=== PATIENT | female | born 2005 | race Two or more races ===

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

== ENCOUNTER 2024-12-30 13:38 | Emergency (ER) | payer MEDICAID, OTHER ==
[~2024-12-30] VITALS: Ht 165.1 cm; Wt 68.1 kg
[~2024-12-30 13:38] MED LIST: CEPH500C PO
[2024-12-30 13:42] VITALS: BP 117/78; PULSE 101; RESP 16; TEMP 98.8; O2SAT 100
--- NOTE | 2024-12-30 13:49 | ED.PDOC ---
History of Present Illness HPI Comments 19 y/o F is BIBA from private residence for c/c of nonradiating, lower abdominal pain, with associated shortness of breath. Patient reports on being 24x weeks with her second ([id number]), currently, and sudden, unprovoked, and atraumatic onset of 7/10 pain with difficulty breathing, this morning. Denies any vaginal bleeding, nausea, vomiting, or further acute symptoms. She endorses on no recent ailments, sick contacts, spoiled food consumption, previous complications, or further pertinent events/history, with exception of mild exertional activities from lifting her other child at home. 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 Vitals within normal limits, with e xception of tachycardic rate of 105 and a blood glucose of 88. Time Seen by MD: 13:30 Primary Care Provider: UNKNOWN Reviewed Notes: Nurses Notes, Retail Sales Merchandiser Development Notes, Medications, Allergies Allergies: Coded Allergies: Peanut-containing Drug Products (Verified Allergy, Unknown, 08/06/22) Home Meds Active Scripts Cephalexin Monohydrate (Cephalexin) 500 Mg Cap, 1 CAP PO BID for 7 Days, #14 CAP 0 Refills Prov:RITCHIE SERRATO 08/06/22 Information Source: Patient, Emergency Med Personnel Mode of Arrival: EMS Severity: Moderate Timing: Hours Duration: Since onset Prehospital treatment: 12 Lead EKG, Accucheck, Fraud Examiner Past Medical History PAST MEDICAL HISTORY: Asthma Surgical History: Denies all surgeries 2 Para 1 AB 0 Family History Family History: Unknown Social History Smoker: Non-Smoker Alcohol: Denies ETOH Use Drugs: Denies Drug Use Lives In: Home Constitutional: denies: chills, diaphoresis, fatigue, fever, malaise, sweats, weakness, others EENTM: denies: blurred vision, double vision, ear bleeding, ear discharge, ear drainage, ear pain, ear ringing, eye pain, eye redness, hearing loss, mouth pain, mouth swelling, nasal discharge, nose bleeding, nose congestion, nose pain, photophobia, tearing, throat pain, throat swelling, voice changes, others Respiratory: denies: cough, hemoptysis, orthopnea, SOB at rest, shortness of breath, SOB with excertion, stridor, wheezing, others Cardiovascular: denies: chest pain, dizzy spells, diaphoresis, Dyspnea on exertion, edema, irregular heart beat, left arm pain, lightheadedness, palpitations, PND, syncope, others Gastrointestinal: reports: abdominal pain; denies: abdomen distended, blood streaked bowels, constipated, diarrhea, dysphagia, difficulty swallowing, hematemesis, melena, nausea, poor appetite, poor fluid intake, rectal bleeding, rectal pain, vomiting, others Genitourinary: denies: abnormal vagina bleeding, burning, dyspareunia, dysuria, flank pain, frequency, hematuria, incontinence, pain, , vagina discharge, urgency, others Neurological: denies: dizziness, fainting, headache, left sided numbness, left sided weakness, numbness, paresthesia, pre-existing deficit, right sided numbness, right sided weakness, seizure, speech problems, tingling, tremors, wea kness, others Musculoskeletal: denies: back pain, gout, joint pain, joint swelling, muscle pain, muscle stiffness, neck pain, others Integumetry: denies: bruises, change in color, change in hair/nails, dryness, l aceration, lesions, lumps, rash, wounds, others Allergic/Immunocompromised: denies: Difficulty Healing, Frequent Infections, Hives, Itching, others Hematologic/Lymphatic: denies: anemia, blood clots, easy bleeding, easy bruising, swollen glands, others Endocrine: denies: excessive hunger, excessive sweating, excessive thirst, excessive urination, flushing, intolerance to cold, intolerance to heat, unexplained weight gain, unexplained weight loss, others Psychiatric: denies: anxiety, bipolar disorder, depression, hopeless, panic disorder, schizophrenia, sleepless, suicidal, others All Other Systems: Reviewed and Negative Physical Exam General Appearance: No Apparent Distress HEENT: Normal ENT Inspection, Pharynx Normal, TMs Normal Neck: Full Range of Motion, Non-Tender, Normal, Normal Inspection Respiratory: Chest Non-Tender, Lungs Clear, No Accessory Muscle Use, No Respiratory Distress, Normal Breath Sounds Cardiovascular: No Edema, No JVD, No Murmur, No Gallop, Normal Peripheral Pulses, Regular Rate/Rhythm Breast Exam: Deferred Gastrointestinal: Non Tender, No Pulsatile Mass, Normal Bowel Sounds, Soft, Other (Gravid uterus) Genitalia: Deferred Pelvic: Deferred Rectal: Deferred Extremities: No calf tenderness, Normal capillary refill, Normal inspection, Normal range of motion, Non-tender, No pedal edema Musculoskeletal : Apperance: Normal Neurologic: Alert, office spec II-XII nml as Tested, No Motor Deficits, Normal Affect, Normal Mood, No Sensory Deficits Cerebellar Function: Normal Reflexes: Normal Skin: Dry, Normal Color, Warm Lymphatic: No Adenopathy Was a procedure done? Was a procedure done?: No Differential Dx Considerations may include: at-risk , gastritis, gastroenteritis, PID, abruptio placentae, placenta previa, among others X-Ray, Labs, Meds, VS The patient is cleared from the emergency department's and going to labor and delivery Time of 1ST Reevaluation: 14:00 Reevaluation 1ST: Unchanged Patient Education/Counseling: Diagnosis, Treatment, Prognosis, Need For Follow Up Family Education/Counseling: No Family Present Departure 1 Departure Time of Disposition: 14:03 Impression: Primary Impression: Abdominal pain during Qualified Codes: O26.899 - Other specified related conditions, unspecified trimester; R10.9 - Unspecified abdominal pain Disposition: 01 HOME / SELF CARE / HOMELESS Condition: Fair Discharged With: Self Critical Care Note Critical Care Time?: No Stability Stability form required: No Heart Score Heart Score: Heart Score Response (Comments) Value History N/A 0 EKG N/A 0 Age N/A 0 Risk Factors N/A 0 Troponin N/A 0 Total 0 I personally scribed for MICHAEL ELIZONDO MD ([email or web address]) on 12/30/24 at 13:49. Electronically submitted by Rashaad Vigil ([email or web address]). I personally scribed for MICHAEL ELIZONDO MD ([email or web address]) on 12/30/24 at 13:50. Electronically submitted by Rashaad Vigil ([email or web address]). MICHAEL ELIZONDO MD Dec 30, 2024 13:49
[2024-12-30] MEDS ORDERED: PREN-96 PO (14:18)
--- NOTE | 2024-12-30 15:10 | DVH ---
LIMITED OB ULTRASOUND > 14 WKS: HISTORY: Confirm Heart Tones TECHNIQUE: Multiple real-time grayscale images of the gravid uterus with duplex Doppler color flow and M-mode spectral analysis. TRANSDUCER: Transabdominal COMPARISON: None FINDINGS/IMPRESSION: heart rate 151 beats per minute REE deepest pocket measures 6.3 cm Cervix is closed and measures 3.7 cm Cephalic Presentation Anterior Placenta without previa or abruption.
--- NOTE | 2024-12-30 15:57 | DVHDS2 ---
Physician Discharge Progress N Final Diagnosis: pelvic pain 23 wks Operations or Procedures: Operations or Procedures nst,sono Condition on Discharge: Good Disposition: Home Discharge Instructions: Diet: Regular Activity: No Restrictions, As Tolerated Follow Up/Referral: as scheduled. Medications: na Follow Up Care: Specialist: 1w Discharge Statement: "Patient was advised to return to the ER or call 911 if any headaches, dizziness, shortness of breath, chest pain, abdominal pain, bleeding, fevers, or worsening of medical condition. Patient was counseled about treatment plan, medications, possible side effects, patientverbalized understanding. All questions were answered to the best of my ability. This discharge took greater then 30 minutes in planning, reviewing documentation, counseling the patient, and discussing with other team members." Visit Coding OBGYN Date of Service: Dec 30, 2024 Billing Provider: DANIELLE WEST DO PLANT PROPAGATOR Common Visit Codes: 56086-BQLKVUS OBS CARE (HIGH) PLANT PROPAGATOR Procedure Codes: 06797-25- NON-STRESS TEST DANIELLE WEST DO Dec 30, 2024 15:57
== END 2024-12-30 15:40 | disposition home or self-care (01) ==
LOC: ER 13:38 → EDBD 13:38 → LDRP 13:56
PROVIDERS: ADMIT Obstetrics & Gynecology; ATTEND Obstetrics & Gynecology
DX: O26.892 Other specified pregnancy related conditions, second trimester (principal); R10.20 Pelvic and perineal pain unspecified side; R06.02 Shortness of breath; Z3A.23 23 weeks gestation of pregnancy; Z98.890 Other specified postprocedural states; Z79.899 Other long term (current) drug therapy
CPT/HCPCS: 76815; 81002; 94760; G0378